=== PATIENT | female | born 1945 | race Hispanic/Latino ===

== ENCOUNTER 2023-11-30 10:06 | Inpatient (IN) | payer MEDICARE, BC ==
[2023-11-30] VITALS (7 sets, daily range): BP systolic 102–127; BP diastolic 60–64; PULSE 86–91; RESP 16–20; TEMP 98.6–100.1; O2SAT 94–97
[~2023-11-30] VITALS: Ht 152.4 cm; Wt 97.5 kg
[2023-11-30] MEDS ORDERED: [UNRECOGNIZED DRUG - OTHER] PO (10:47)
[2023-11-30] MEDS ORDERED: ENTRESTO 24 MG1 EACH PO (10:47)
[2023-11-30] MEDS ORDERED: ATORVASTATIN CA20 MG PO (10:47)
[2023-11-30] MEDS ORDERED: METOPROLOL SUCC25 MG PO (10:47)
[2023-11-30 10:57] LABS: BASOPHILS % 0.2 % (0.0-1.0); HEMATOCRIT 43.7 % (34.2-44.1); HEMOGLOBIN 14.4 g/dL (12.0-16.0); LYMPHOCYTES # (AUTO) 0.3 (1.0-3.2); LYMPHOCYTES % 3.2 % (18.0-39.1); MEAN CORPUSCULAR HEMOGLOBIN 29.4 pg (28-32); MEAN CORPUSCULAR VOLUME 89.4 fL (81-99); MONOCYTES # (AUTO) 0.3 (0.2-0.8); MONOCYTES % 3.9 % (4.4-11.3); NEUTROPHILS # (AUTO) 7.7 (2.1-6.9); NEUTROPHILS % 92.3 % (38.7-80.0); PLATELET COUNT 154 x10e3/uL (140-360); RED BLOOD COUNT 4.89 x10e6/uL (3.6-5.1); WHITE BLOOD COUNT 8.36 x10e3/uL (4.8-10.8)
[2023-11-30] MEDS: ACETAMINOPHEN 1000 MG/100 ML IV STA (10:57)
[2023-11-30] MEDS: SODIUM CHLORIDE 0.9% 1000ML 1,000 ML IV STA (10:57)
[2023-11-30] MEDS: ONDANSETRON HCL INJ 2MG/ML 2ML 2 MG/ML VIAL IV STA (10:57)
[2023-11-30 11:00] LABS: CLARITY,URINE CLOUDY (CLEAR); COLOR,URINE YELLOW (YELLOW); GLUCOSE, URINE NEGATIVE (NEGATIVE); LEUKOCYTE ESTERASE ,URINE NEGATIVE (NEGATIVE); NITRITE,URINE POSITIVE (NEGATIVE); PH,URINE 5.5 (5 - 7); PROTEIN,URINE DIPSTICK >=300 (NEGATIVE)
[2023-11-30 11:01] LABS: BILIRUBIN,URINE MODERATE (NEGATIVE); KETONES,URINE 1+ (NEGATIVE); URINE UROBILINOGEN 1 mg/dL (0.2 - 1)
[2023-11-30] MEDS: METOPROLOL TARTRATE INJ 1 MG/ML VIAL IV ONE ×2 (11:07→11:32)
[2023-11-30] MEDS: METOPROLOL TARTRATE 25 MG TAB PO ONE (11:07)
[2023-11-30 11:12] LABS: BACTERIA,URINE MODERATE /HPF; EPITHELIAL CELLS,URINE MANY /LPF; MUCUS,URINE MANY (RARE)
[2023-11-30 11:18] LABS: ALBUMIN 2.8 g/dL (3.5-5.0); ALBUMIN/GLOBULIN RATIO 0.8 (0.8-2.0); ANION GAP 14.6 mmol/L (8-16); CALCIUM 8.3 mg/dL (8.4-10.2); CREATININE, SERUM 1.26 mg/dL (0.57-1.11); MAGNESIUM 1.7 MG/DL (1.3-2.1); POTASSIUM 3.6 mmol/L (3.5-5.1); TOTAL PROTEIN 6.3 g/dL (6.5-8.1)
[2023-11-30 11:24] LABS: TROPONIN I 0.007 ng/mL (0-0.300)
[2023-11-30] MEDS: SODIUM CHLORIDE 0.9% 1000ML 1,000 ML IV SCH (12:17)
[2023-11-30 12:53] LABS: FREE THYROXINE INDEX 1.8744 (1.4-3.8); T3 UPTAKE 29.8 % (22.5-37.0); THYROID STIMULATING HORMONE 0.345 uIU/mL (0.350-4.940)
[2023-11-30 12:55] LABS: T4 (THYROXINE) 6.29 ug/dL (4.5-10.9)
[2023-11-30] MEDS ORDERED: OS-CAL 500+D T1 EACH PO (15:12)
[2023-11-30] MEDS: METOPROLOL TARTRATE 25 MG TAB PO SCH (15:56)
[2023-11-30] MEDS: DABIGATRAN ETEXILATE 75 MG CAP PO SCH (15:56)
[2023-11-30] MEDS: SACUBITRIL/VALSARTAN 24MG/26MG 1 EA TAB PO SCH (15:56)
[2023-11-30 18:43] LABS: TROPONIN I 0.015 ng/mL (0-0.300)
[2023-11-30] MEDS: ATORVASTATIN 20 MG TAB PO SCH (20:25)
[2023-12-01] VITALS (8 sets, daily range): BP systolic 109–150; BP diastolic 55–76; PULSE 98–113; RESP 16–20; TEMP 98.3–102.9; O2SAT 97–100
[2023-12-01] MEDS ORDERED: ACETAMINOPHEN 650 MG SUPP PR PRN (00:30)
[2023-12-01] MEDS: ACETAMINOPHEN 325 MG TAB PO PRN ×2 (00:43→16:09)
[2023-12-01 05:52] LABS: BASOPHILS % 0.5 % (0.0-1.0); HEMATOCRIT 47.4 % (34.2-44.1); HEMOGLOBIN 14.9 g/dL (12.0-16.0); LYMPHOCYTES # (AUTO) 0.3 (1.0-3.2); LYMPHOCYTES % 5.2 % (18.0-39.1); MEAN CORPUSCULAR HEMOGLOBIN 29.5 pg (28-32); MEAN CORPUSCULAR HGB CONC 31.4 g/dL (31-35); MEAN CORPUSCULAR VOLUME 93.9 fL (81-99); MONOCYTES # (AUTO) 0.3 (0.2-0.8); MONOCYTES % 4.7 % (4.4-11.3); NEUTROPHILS # (AUTO) 5.1 (2.1-6.9); NEUTROPHILS % 89.1 % (38.7-80.0); PLATELET COUNT 139 x10e3/uL (140-360); RED BLOOD COUNT 5.05 x10e6/uL (3.6-5.1); RED CELL DISTRIBUTION WIDTH 14.4 % (11.7-14.4); WHITE BLOOD COUNT 5.76 x10e3/uL (4.8-10.8)
[2023-12-01 06:31] LABS: ALBUMIN 2.6 g/dL (3.5-5.0); ALBUMIN/GLOBULIN RATIO 0.7 (0.8-2.0); ANION GAP 16.1 mmol/L (8-16); BILIRUBIN,TOTAL 0.7 mg/dL (0.2-1.2); CALCIUM 8.2 mg/dL (8.4-10.2); CHOL/HDL RATIO 3.1 (3.0-3.6); CREATININE, SERUM 0.9 mg/dL (0.57-1.11); POTASSIUM 4.1 mmol/L (3.5-5.1); TOTAL PROTEIN 6.4 g/dL (6.5-8.1)
[2023-12-01 07:06] LABS: TROPONIN I 0.009 ng/mL (0-0.300)
[2023-12-01 07:20] LABS: BAND NEUTROPHILS % (MANUAL) 4 %; LYMPHOCYTES % (MANUAL) 4 % (19-48); MONOCYTES % (MANUAL) 2 % (3.4-9.0); NEUTROPHILS % (MANUAL) 90 % (40-74); PLATELET ESTIMATE SLIGHTLY DECREASED; PLATELET MORPHOLOGY COMMENT NORMAL; RBC MORPHOLOGY COMMENT NORMAL
[2023-12-01] MEDS: ONDANSETRON HCL INJ 2MG/ML 2ML 2 MG/ML VIAL IV PRN (09:44)
[2023-12-01] MEDS: METOPROLOL TARTRATE 25 MG TAB PO SCH (21:06)
[2023-12-02] VITALS (9 sets, daily range): BP systolic 116–154; BP diastolic 60–79; PULSE 62–109; RESP 18–20; TEMP 97.8–102.6; O2SAT 95–100
[2023-12-02 06:09] LABS: BASOPHILS % 0.2 % (0.0-1.0); HEMATOCRIT 39.9 % (34.2-44.1); HEMOGLOBIN 13.4 g/dL (12.0-16.0); LYMPHOCYTES # (AUTO) 0.2 (1.0-3.2); LYMPHOCYTES % 3.6 % (18.0-39.1); MEAN CORPUSCULAR HGB CONC 33.6 g/dL (31-35); MEAN CORPUSCULAR VOLUME 89.3 fL (81-99); MONOCYTES # (AUTO) 0.2 (0.2-0.8); MONOCYTES % 2.9 % (4.4-11.3); NEUTROPHILS # (AUTO) 5.1 (2.1-6.9); NEUTROPHILS % 92.9 % (38.7-80.0); PLATELET COUNT 144 x10e3/uL (140-360); RED BLOOD COUNT 4.47 x10e6/uL (3.6-5.1); RED CELL DISTRIBUTION WIDTH 14.5 % (11.7-14.4); WHITE BLOOD COUNT 5.52 x10e3/uL (4.8-10.8)
[2023-12-02 06:44] LABS: ANION GAP 11.7 mmol/L (8-16); CALCIUM 7.6 mg/dL (8.4-10.2); CREATININE, SERUM 0.74 mg/dL (0.57-1.11); POTASSIUM 3.7 mmol/L (3.5-5.1)
[2023-12-02 08:38] LABS: BAND NEUTROPHILS % (MANUAL) 7 %; LYMPHOCYTES % (MANUAL) 4 % (19-48); NEUTROPHILS % (MANUAL) 89 % (40-74); PLATELET ESTIMATE SLIGHTLY DECREASED; PLATELET MORPHOLOGY COMMENT NORMAL; RBC MORPHOLOGY COMMENT NORMAL
[2023-12-02] MEDS: AMIODARONE HCL 200 MG TAB PO SCH (13:23)
[2023-12-02] MEDS: METOPROLOL TARTRATE 25 MG TAB PO SCH (13:23)
[2023-12-02] MEDS ORDERED: IOPAMIDOL 370 MG/ML 100 ML INFUS..BTL INJ ONE (17:48)
[2023-12-02] MEDS: BENZONATATE 100 MG CAP PO SCH (20:49)
[2023-12-03] VITALS (9 sets, daily range): BP systolic 125–146; BP diastolic 77–97; PULSE 91–108; RESP 16–20; TEMP 97.7–100.5; O2SAT 94–100
[2023-12-03 06:48] LABS: BASOPHILS % 0.2 % (0.0-1.0); HEMATOCRIT 38.2 % (34.2-44.1); HEMOGLOBIN 12.6 g/dL (12.0-16.0); LYMPHOCYTES # (AUTO) 0.3 (1.0-3.2); LYMPHOCYTES % 5.2 % (18.0-39.1); MEAN CORPUSCULAR HEMOGLOBIN 29.7 pg (28-32); MEAN CORPUSCULAR VOLUME 90.1 fL (81-99); MONOCYTES # (AUTO) 0.3 (0.2-0.8); MONOCYTES % 4.8 % (4.4-11.3); NEUTROPHILS # (AUTO) 5.2 (2.1-6.9); NEUTROPHILS % 89.1 % (38.7-80.0); PLATELET COUNT 147 x10e3/uL (140-360); RED BLOOD COUNT 4.24 x10e6/uL (3.6-5.1); RED CELL DISTRIBUTION WIDTH 14.5 % (11.7-14.4); WHITE BLOOD COUNT 5.78 x10e3/uL (4.8-10.8)
[2023-12-03] MEDS ORDERED: METOPROLOL TARTRATE 50 MG TAB PO SCH (10:30)
[2023-12-03 15:49] LABS: HEPATITIS B SURFACE AG (P) Nonreactive; HEPATITIS C ANTIBODY Nonreactive
[2023-12-03] MEDS: METOPROLOL TARTRATE 50 MG TAB PO SCH (18:02)
[2023-12-04] VITALS (12 sets, daily range): BP systolic 100–157; BP diastolic 74–90; PULSE 101–128; RESP 18–20; TEMP 97.9–100.4; O2SAT 93–100
[2023-12-04] MEDS ORDERED: ALBUTEROL/IPRATROPIUM 3 ML NEB NEB SCH (01:00)
[2023-12-04 05:43] LABS: BASOPHILS % 0.6 % (0.0-1.0); HEMATOCRIT 41.7 % (34.2-44.1); HEMOGLOBIN 13.5 g/dL (12.0-16.0); LYMPHOCYTES # (AUTO) 0.3 (1.0-3.2); LYMPHOCYTES % 4.5 % (18.0-39.1); MEAN CORPUSCULAR HGB CONC 32.4 g/dL (31-35); MEAN CORPUSCULAR VOLUME 89.5 fL (81-99); MONOCYTES # (AUTO) 0.3 (0.2-0.8); MONOCYTES % 4.4 % (4.4-11.3); NEUTROPHILS % 89.9 % (38.7-80.0); PLATELET COUNT 160 x10e3/uL (140-360); RED BLOOD COUNT 4.66 x10e6/uL (3.6-5.1); RED CELL DISTRIBUTION WIDTH 14.9 % (11.7-14.4); WHITE BLOOD COUNT 6.62 x10e3/uL (4.8-10.8)
[2023-12-04 06:21] LABS: ALBUMIN 1.8 g/dL (3.5-5.0); ALBUMIN/GLOBULIN RATIO 0.5 (0.8-2.0); ANION GAP 13.9 mmol/L (8-16); BILIRUBIN,TOTAL 0.8 mg/dL (0.2-1.2); CALCIUM 7.9 mg/dL (8.4-10.2); CREATININE, SERUM 0.72 mg/dL (0.57-1.11); POTASSIUM 3.9 mmol/L (3.5-5.1); TOTAL PROTEIN 5.2 g/dL (6.5-8.1)
[2023-12-04 08:16] LABS: BAND NEUTROPHILS % (MANUAL) 3 %; LYMPHOCYTES % (MANUAL) 3 % (19-48); MONOCYTES % (MANUAL) 1 % (3.4-9.0); NEUTROPHILS % (MANUAL) 93 % (40-74)
[2023-12-04 08:17] LABS: PLATELET ESTIMATE ADEQUATE; PLATELET MORPHOLOGY COMMENT NORMAL; RBC MORPHOLOGY COMMENT NORMAL; TOXIC GRANULATION MODERATE; VACUOLE,WBC SLIGHT
[2023-12-04] MEDS: LEVALBUTEROL HCL SOLN NEBU 0.63 MG/3 ML NEB INH SCH (11:54)
[2023-12-04] MEDS: APIXABAN 5 MG TABLET PO SCH (16:06)
[2023-12-04] MEDS: AMIODARONE HCL 200 MG TAB PO SCH (16:07)
[2023-12-04] MEDS ORDERED: ONDANSETRON HCL 4 MG ORAL DISINTEGRATING TAB PO PRN (18:45)
[2023-12-05] VITALS (14 sets, daily range): BP systolic 115–152; BP diastolic 67–83; PULSE 86–117; RESP 18–22; TEMP 98.4–99.2; O2SAT 94–100
[2023-12-05 06:11] LABS: BASOPHILS % 0.1 % (0.0-1.0); HEMATOCRIT 41.4 % (34.2-44.1); HEMOGLOBIN 13.6 g/dL (12.0-16.0); LYMPHOCYTES # (AUTO) 0.2 (1.0-3.2); LYMPHOCYTES % 2.6 % (18.0-39.1); MEAN CORPUSCULAR HEMOGLOBIN 29.2 pg (28-32); MEAN CORPUSCULAR HGB CONC 32.9 g/dL (31-35); MONOCYTES # (AUTO) 0.2 (0.2-0.8); MONOCYTES % 2.2 % (4.4-11.3); NEUTROPHILS # (AUTO) 7.2 (2.1-6.9); NEUTROPHILS % 94.7 % (38.7-80.0); PLATELET COUNT 169 x10e3/uL (140-360); RED BLOOD COUNT 4.65 x10e6/uL (3.6-5.1); RED CELL DISTRIBUTION WIDTH 15.3 % (11.7-14.4); WHITE BLOOD COUNT 7.63 x10e3/uL (4.8-10.8)
[2023-12-05 06:29] LABS: ALBUMIN 2.6 g/dL (3.5-5.0); ANION GAP 12.7 mmol/L (8-16); CALCIUM 7.9 mg/dL (8.4-10.2); CREATININE, SERUM 0.7 mg/dL (0.57-1.11); POTASSIUM 3.7 mmol/L (3.5-5.1); TOTAL PROTEIN 5.2 g/dL (6.5-8.1)
[2023-12-05] MEDS: CEFTRIAXONE 2 GM in SODIUM CHLORIDE 0.9% 100 ML IV SCH (08:28)
[2023-12-05] MEDS ORDERED: METOPROLOL TARTRATE INJ 1 MG/ML VIAL IV PRN (08:45)
[2023-12-05] MEDS: METOPROLOL TARTRATE 50 MG TAB PO SCH (09:22)
[2023-12-05] MEDS: LACTOBACILLUS ACIDOPHILUS CAPSULE PO SCH (20:59)
[2023-12-06] VITALS (12 sets, daily range): BP systolic 118–147; BP diastolic 69–83; PULSE 87–100; RESP 15–21; TEMP 97.6–98.1; O2SAT 94–100
[2023-12-06 08:05] LABS: BASOPHILS % 0.3 % (0.0-1.0); EOSINOPHILS % 0.3 % (0.0-6.0); HEMATOCRIT 39.6 % (34.2-44.1); HEMOGLOBIN 12.9 g/dL (12.0-16.0); LYMPHOCYTES # (AUTO) 0.4 (1.0-3.2); LYMPHOCYTES % 5.2 % (18.0-39.1); MEAN CORPUSCULAR HEMOGLOBIN 28.9 pg (28-32); MEAN CORPUSCULAR HGB CONC 32.6 g/dL (31-35); MEAN CORPUSCULAR VOLUME 88.8 fL (81-99); MONOCYTES # (AUTO) 0.2 (0.2-0.8); NEUTROPHILS # (AUTO) 6.1 (2.1-6.9); NEUTROPHILS % 90.8 % (38.7-80.0); PLATELET COUNT 201 x10e3/uL (140-360); RED BLOOD COUNT 4.46 x10e6/uL (3.6-5.1); RED CELL DISTRIBUTION WIDTH 15.4 % (11.7-14.4); WHITE BLOOD COUNT 6.68 x10e3/uL (4.8-10.8)
[2023-12-06 08:28] LABS: ALBUMIN 2.4 g/dL (3.5-5.0); ALBUMIN/GLOBULIN RATIO 0.9 (0.8-2.0); ANION GAP 12.7 mmol/L (8-16); BILIRUBIN,TOTAL 0.7 mg/dL (0.2-1.2); CALCIUM 7.7 mg/dL (8.4-10.2); CREATININE, SERUM 0.66 mg/dL (0.57-1.11); POTASSIUM 3.7 mmol/L (3.5-5.1)
[2023-12-06 12:24] LABS: BAND NEUTROPHILS % (MANUAL) 4 %; LYMPHOCYTES % (MANUAL) 1 % (19-48); MONOCYTES % (MANUAL) 3 % (3.4-9.0); NEUTROPHILS % (MANUAL) 92 % (40-74)
[2023-12-06 12:26] LABS: PLATELET ESTIMATE ADEQUATE; PLATELET MORPHOLOGY COMMENT NORMAL; RBC MORPHOLOGY COMMENT NORMAL
[2023-12-07] VITALS (7 sets, daily range): BP systolic 112–139; BP diastolic 72–80; PULSE 90–99; RESP 16–22; TEMP 97.7–97.8; O2SAT 95–99
[2023-12-08 06:16] LABS: TOXOPLASMA IGM ANTIBODY <3.0
[2023-12-09 08:44] LABS: MYCOPLASMA PNEUMO IGG <100 U/mL (0-99)
== END 2023-12-07 11:11 | disposition home or self-care (01) | DRG 194 ==
LOC: ER 10:11 → ERHOLD 11:49 → MED/SURG3 14:50 → OBSVTOIN 12-02 11:05
PROVIDERS: ADMIT Family Medicine; ATTEND Family Medicine
PROC: 05HB33Z Insertion of Infusion Device into Right Basilic Vein, Percutaneous Approach (ICD-10-PCS; principal; 2023-12-05)
PROC: 5A09357 Assistance with Respiratory Ventilation, Less than 24 Consecutive Hours, Continuous Positive Airway Pressure (ICD-10-PCS; 2023-12-05)
PROC: 5A09357 Assistance with Respiratory Ventilation, Less than 24 Consecutive Hours, Continuous Positive Airway Pressure (ICD-10-PCS; 2023-12-06)
DX: J12.9 Viral pneumonia, unspecified (principal); E87.1 Hypo-osmolality and hyponatremia; N39.0 Urinary tract infection, site not specified; I50.32 Chronic diastolic (congestive) heart failure; N17.9 Acute kidney failure, unspecified; Z68.41 Body mass index [BMI] 40.0-44.9, adult; I48.0 Paroxysmal atrial fibrillation; I11.0 Hypertensive heart disease with heart failure; E66.01 Morbid (severe) obesity due to excess calories; R53.1 Weakness; R74.8 Abnormal levels of other serum enzymes; R74.01 Elevation of levels of liver transaminase levels; Z71.3 Dietary counseling and surveillance; E78.5 Hyperlipidemia, unspecified; M19.91 Primary osteoarthritis, unspecified site; G47.33 Obstructive sleep apnea (adult) (pediatric); K21.9 Gastro-esophageal reflux disease without esophagitis; Z11.52 Encounter for screening for COVID-19; Z79.899 Other long term (current) drug therapy; Z79.01 Long term (current) use of anticoagulants; Z85.3 Personal history of malignant neoplasm of breast; Z90.12 Acquired absence of left breast and nipple
CPT/HCPCS: 36415; 70450; 71045; 74177; 80048; 80053; 80061; 81001; 82550; 82948; 83735; 83880; 84436; 84443; 84479; 84484; 85025; 86738; 86777; 86778; 87040; 87086; 87400; 87449; 93005; 93306; 94799; 99252; 99284; G0378; J0696; J2405; J2470; J2543; J7030; J7050; Q9967; U0002